=== PATIENT | male | born 1935 | race Caucasian/White ===

== ENCOUNTER 2019-07-30 10:37 | Emergency (ER) | payer MEDICARE, BC ==
--- OUTSIDE RECORDS SUMMARY | 2019-07-30 10:44 | XMS REPORT | Continuity of Care Document ---
:1935 External Reference #:[id number] Author Name Rashida Hagen M.D. (transmitted by agent of provider Lin Maravilla) Address [address] [place] [address] Care Team Providers Name Role Phone Rashida Hagen MD - Internal Medicine Care Team Information [employer] Developer [phone] Problems Active Problems Provider Date Osteoarthritis Rashida Hagen M.D. Onset: 06/07/2011 Hyperlipidemia Rashida Hagen M.D. Onset: 06/07/2011 Cramp in lower leg associated with rest Rashida Hagen M.D. Onset: 06/07/2011 Social History Type Date Description Comments Sex Unknown Tobacco Use Start: Unknown Denies Smoking ETOH Use Occasionally consumes alcohol Recreational Drug Use Denies Drug Use Tobacco Use Start: Unknown Patient has never smoked Allergies, Adverse Reactions, Alerts Active Allergies Reaction Severity Comments Date NKDA 06/07/2011 tide 07/05/2006 Medications Active Medications SIG Qnty Indications Ordering Provider Date Magnesium One A Day Rashida Hagen M.D. 06/25/2019 500mg Capsules Fish Oil Ultra as directd qd Rashida Hagen M.D. 06/06/2013 1000mg Capsules Multivitamins Rashida Hagen M.D. 04/07/2006 Caplets Immunizations CPT Code Status Date Vaccine Lot # [id number] Given 05/26/2009 Tetanus Shot [id number] Given 08/09/2008 Hepatitis A Vaccine [id number] Given 04/07/1999 DT Immunization DIP/Tet (History Only) Vital Signs Date Vital Result Comment 06/25/2019 1:48pm BP Systolic 138 mmHg BP Diastolic 68 mmHg Heart Rate 79 /min Respiratory Rate 22 /min Height 76 inches 6'4" Weight 191.00 lb BMI (Body Mass Index) 23.2 kg/m2 O2 % BldC Oximetry 95 % 06/19/2018 2:22pm BP Systolic 124 mmHg BP Diastolic 70 mmHg Heart Rate 67 /min Respiratory Rate 18 /min Height 76 inches 6'4" Weight 198.00 lb BMI (Body Mass Index) 24.1 kg/m2 O2 % BldC Oximetry 96 % Results Test Date Facility Test Result H/L Range Note General Health Panel 06/18/2019 [facility] TSH 1.57 mIU/L 0.40-4.50 1 [facility] [address] [place], [place] [id number] [phone] T4,Free 0.9 ng/dL 0.8-1.8 CBC W/ Diff & PLT 06/18/2019 [facility] WBC 5.3 thous/L 3.8-10.[address] [place] [address] [phone] RBC 4.15 mill/L Low 4.20-5.80 Hemoglobin 13.5 g/dL 13.2-17.1 Hematocrit 41.1 % 38.5-50.0 MCV 99.0 FL 80.0-100.0 MCH 32.5 pg 27.0-33.0 MCHC 32.8 g/dL 32.0-36.0 RDW 12.8 % 11.0-15.0 Platelet Count 163 thous/L 140-400 MPV 10.8 FL 7.5-12.5 Neutrophils,Absolute 2680 cells/L 0578-4772 Bands,Absolute PENDING Metamyelocytes,Absolute PENDING Myelocytes,Absolute PENDING Promyelocytes,Absolute PENDING Lymphocytes,Absolute 1790 cells/L 850-3900 Monocytes,Absolute 560 cells/L 200-950 Eosinophils,Absolute 240 cells/L 15-500 Basophils,Absolute 40 cells/L 0-200 Blast Cells,Absolute PENDING Nucleated RBC,Absolute PENDING Total Neutrophils,% 50.6 % 40-75 Bands,% PENDING Metamyelocytes,% PENDING Myelocytes,% PENDING Promyelocytes,% PENDING Total Lymphocytes,% 33.6 % 12-47 Reactive Lymphocytes PENDING Monocytes,% 10.5 % 4-12 Eosinophils,% 4.5 % High 0-4 Basophils,% 0.8 % 0-1 2 Blasts,% PENDING Nucleated RBC PENDING Comment PENDING CMP W/GFR 06/18/2019 [facility] Sodium 139 mmol/L 135-146 [address] [place] [address] [phone] Potassium 4.7 mmol/L 3.5-5.3 Chloride 103 mmol/L 98-110 Carbon Dioxide 28 mmol/L 20-32 3 Calcium 9.6 mg/dL 8.6-10.3 Alkaline Phosphatase 47 U/L 40-115 Ast 26 U/L 10-35 Alt 19 U/L 9-46 Bilirubin,Total 0.7 mg/dL 0.2-1.2 Glucose 108 mg/dL High 65-99 4 Urea Nitrogen (BUN) 22 mg/dL 7-25 Creatinine 1.13 mg/dL High 0.70-1.11 5 BUN/Creatinine Ratio 19.4 6-22 Protein,Total 6.6 g/dL 6.1-8.1 Albumin 4.5 g/dL 3.6-5.1 Globulin,Calculated 2.1 g/dL 1.9-3.7 A/G Ratio 2.1 1.0-2.5 Egfr Non-Afr. Swiss 61 ML/MIN/1.73M2 > Or = 60 Egfr 70 ML/MIN/1.73M2 > Or = 60 Lipid Panel 06/18/2019 [facility] Cholesterol 201 mg/dL High <199 [address] [place] [address] [phone] HDL Cholesterol 70 mg/dL >40 Cholesterol/HDL Ratio 2.9 CALC <5.0 LDL Chol,Calculated 116 mg/dL High 0-100 6 Triglycerides 59 mg/dL <150 Non-HDL Cholesterol 131 mg/dL High <130 7 1 FASTING 2 Relative blood cell counts (%) should be compared with absolute cell counts (cells/mcL). Relative counts may not be clinically meaningful if the absolute count of one or more cell type is decreased. Reference ranges for relative cell counts derived from: A Manual of Laboratory and Diagnostics Tests, 9th Ed, Nataly Rosales & Ruiz, 2015. Pediatric Reference Intervals, 7th Ed, [employer], 2011. 3 Reference range for high altitude clients: 18-30 mmol/L 4 GLUCOSE REFERENCE RANGE BASED ON FASTING SPECIMEN. 5 The upper reference limit for Creatinine is approximately 13% higher for people identified as -Swiss. 6 LDL-C is now calculated using the Rojelio calculation, which is a validated novel method providing better accuracy than the Friedewald equation in the estimation of LDL-C. Cipriano SCOTT et al.HAIDER.2013;310(03):9856-5093 Desirable range <100 mg/dL for primary prevention; <70 mg/dL for patients with CHD or diabetic patients with >or= 2 CHD risk factors. 7 For patients with diabetes plus 1 major ASCVD risk factor, treating to a non-HDL-C goal of <100 mg/dL (LDL-C of <70 mg/ dL) is considered a therapeutic option. Procedures Date Code Description Status 06/01/2012 930235890 Bone Mineral Density Test Completed 09/07/2002 68934731 Colonoscopy Completed Medical Devices Description No Information Available Encounters Description No Information Available Assessments Date Code Description Provider 06/25/2019 E78.5 Hyperlipidemia, unspecified Rashida Hagen M.D. 06/25/2019 G47.62 Sleep related leg cramps Rashida Hagen M.D. 06/25/2019 Z00.00 Encounter for general adult medical examination Rashida Hagen M.D. without abnormal findings Plan of Treatment 06/25/2019 - Rashida Hagen M.D.E78.5 Hyperlipidemia, unspecifiedNew Labs:Lipid Panel, Ordered: 06/25/19[facility], Ordered: 06/25/19Comments: continue with avoidance of saturated fats. Will monitor transfat intake. Will try to exercise regularly. Will consider fish oil capsules OTC to lower triglyceridesFollow up:Followup:. (Follow up)Followup:. (Follow up)6 months with lipid dehwmkyX94.62 Sleep related leg crampsNew Labs:Lipid Panel, Ordered: 06/25/19[facility], Ordered: 06/25/19Z00.00 Encounter for general adult medical examination without abnormal findingsNew Labs:Lipid Panel , Ordered: 06/25/19[facility], Ordered: 06/25/19Comments: continue healthy diet and exerciseAllNew Medication:Magnesium 500 mg - One A Day Functional Status Description No Information Available Mental Status Description No Information Available Referrals Description No Information Available
[2019-07-30 10:48] VITALS: BP 148/78
--- NOTE | 2019-07-30 12:04 | UC ---
Hand/Wrist HPI - HPI Summary HPI Summary: 84-year-old male presents with complaints of left wrist pain, bruising, swelling. States 5 days ago he was hiking in some tall grass and accidentally stepped in a hole falling to the ground onto an outstretched arm. States only has mild pain and discomfort if he puts pressure on the wrist. Reports full range of motion. Denies any other injury, numbness or tingling. - History Of Current Complaint Chief Complaint: UCUpperExtremity Stated Complaint: WRIST INJURY Time Seen by Provider: 07/30/19 11:20 Hx Obtained From: Patient Pain Intensity: 5 - Allergies/Home Medications Allergies/Adverse Reactions: Allergies Allergy/AdvReac Type Severity Reaction Status Date / Time No Known Allergies Allergy Verified 07/30/19 10:48 PMH/Surg Hx/FS Hx/Imm Hx Previously Healthy: Yes - Denies significant PMH - Surgical History Surgical History: None Surgery Procedure, Year, and Place: Appendectomy and tonsillectomy as a child, thyroglossal duct cyst removal - Family History Known Family History: Positive: Non-Contributory - Social History Occupation: Retired Lives: With Family Alcohol Use: Daily Alcohol Amount: 1 glass on wine with dinner Substance Use Type: None Smoking Status (MU): Never Smoked Tobacco Review of Systems All Other Systems Reviewed And Are Negative: Yes Constitutional: Positive: Negative Skin: Positive: Bruising Respiratory: Positive: Negative Cardiovascular: Positive: Negative Gastrointestinal: Positive: Negative Genitourinary: Positive: Negative Motor: Negative: Weakness Neurovascular: Negative: Decreased Sensation Musculoskeletal: Positive: Other: - See HPI Neurological: Positive: Negative Is Patient Immunocompromised?: No Physical Exam - Summary Physical Exam Summary: GENERAL APPEARANCE: Well developed, well nourished, alert and cooperative, and appears to be in no acute distress. HEAD: Atraumatic. Normocephalic. NECK: Neck supple, non-tender. Full ROM. CARDIAC: Normal S1 and S2. No S3, S4 or murmurs. Rhythm is regular. There is no peripheral edema, cyanosis or pallor. Extremities are warm and well perfused. Capillary refill is less than 2 seconds. Peripheral pulses intact. LUNGS: Clear to auscultation without rales, rhonchi, wheezing or diminished breath sounds. ABDOMEN: Positive bowel sounds. Soft, nondistended, nontender. No guarding or rebound. No masses or hepatosplenomegally. MUSKULOSKELETAL: Normal muscular development. Normal gait. BACK: Examination of the spine reveals no spinal deformity or tenderness, decreased range of motion or muscular spasm. EXTREMITIES: Mild tenderness over the left distal radius without gross deformity. Mild-moderate edema and ecchymosis noted to the anterior and posterior left wrist. Circulation and sensation intact. SKIN: Skin normal color, texture and turgor. Triage Information Reviewed: Yes Vital Signs: Initial Vital Signs Temp 98 F 07/30/19 10:44 Pulse 80 07/30/19 10:44 Resp 18 07/30/19 10:44 BP 148/78 07/30/19 10:44 Pulse Ox 100 07/30/19 10:44 Vital Signs Reviewed: Yes Diagnostics - Radiology No standard instances Radiology Interpretation Completed By: Radiologist Summary of Radiographic Findings: Order Information: WRIST LEFT 3+ VWS. INDICATION: LEFT wrist pain, bruising, and swelling post fall. COMPARISON: No relevant prior exams available on the [facility] for comparison. TECHNIQUE: AP, lateral, and oblique views LEFT wrist. REPORT: Transverse fracture at the distal metaphysis of the radius with disproportionate dorsal impaction with resulting loss of the normal volar tilt of the distal radial articular surface. No associated fracture of the ulna evident. Old fracture fragment or accessory ossicle noted adjacent to the tip of the ulnar styloid. Negative for dislocation. 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 Nonfocal soft tissue swelling. IMPRESSION: Transverse fracture at the distal metaphysis of the radius with disproportionate dorsal impaction with resulting loss of the normal volar tilt of the distal radial articular surface. Hand/Wrist Course/Dx - Course Course Of Treatment: 84-year-old male presents with complaints of left wrist pain, bruising, swelling. States 5 days ago he was hiking in some tall grass and accidentally stepped in a hole falling to the ground onto an outstretched arm. States only has mild pain and discomfort if he puts pressure on the wrist. Reports full range of motion. Denies any other injury, numbness or tingling. Afebrile. Hypertensive otherwise vital signs stable. Patient had mild tenderness over the left distal radius without gross deformity. Mild-moderate edema and ecchymosis noted to the anterior and posterior left wrist. Circulation and sensation intact. Remainder of exam was unremarkable. X-ray showed transverse fracture at the distal metaphysis of the radius with disproportionate dorsal impaction with resulting loss of the normal volar tilt of the distal radial articular surface. I placed the patient in a volar short arm splint using Ortho -Glass. Circulation sensation were intact pre-and post-application. Recommending conservative treatment for a left wrist fracture including over-the -counter analgesics and RICE. Patient is to follow-up with orthopedic surgery and 3-5 days. Anticipatory guidance, splint care, and warning symptoms were reviewed with the patient. Verbalizes understanding and agrees with plan of care. - Differential Dx/Diagnosis Differential Diagnosis/HQI/PQRI: Contusion, Dislocation, Fracture, Sprain Provider Diagnosis: Nondisplaced fracture of distal end of radius Discharge ED - Sign-Out/Discharge Documenting (check all that apply): Patient Departure All imaging exams completed and their final reports reviewed: Yes - Discharge Plan Condition: Stable Disposition: HOME Patient Education Materials: Wrist Fracture in Adults (ED) Referrals: Rashida Hagen MD [Primary Care Provider] - Rocco Raya MD [Medical Doctor] - 3 Days (Call for appointment) Additional Instructions: The x-ray performed in the clinic today showed evidence of a fracture to the distal left radius. Rest the wrist as much as possible. You will need to use the splint was applied in the clinic at all times. Avoid getting this wet. Apply ice to the affected area for 15-20 minutes at least 4 times a day to help with the pain and swelling. Elevate the arm to help reduce swelling. Take acetaminophen (Tylenol) or ibuprofen (Advil, Motrin) according to directions as needed for pain. Follow up with orthopedic surgery in 3-5 days for further evaluation and treatment. Seek immediate medical attention if you have severe pain not managed with pain medication, develop numbness or tingling in the hand or fingers, or have any worsening of symptoms. - Billing Disposition and Condition Condition: STABLE Disposition: Home - Attestation Statements Provider Attestation: This patient was seen by the YULI. The patient was not presented to, seen by, or examined by me. -Mark
== END 2019-07-30 13:09 | disposition home or self-care (01) ==
LOC: UCEAST 10:37
DX: S52.502A Unspecified fracture of the lower end of left radius, initial encounter for closed fracture (principal); X58.XXXA Exposure to other specified factors, initial encounter; Y92.9 Unspecified place or not applicable
CPT/HCPCS: 99211; G0463